=== PATIENT | female | born 1985 | race American Indian/Alaskan Native ===

== ENCOUNTER 2017-03-07 20:36 | Emergency (ER) | payer SELFPAY ==
[2017-03-07 21:43] LABS: Basophils % (Auto) 0.7 % (0.0-1.8); Eosinophils % (Auto) 0.6 % (0.0-4.3); Hematocrit 35.5 % (30.3-42.9); Hemoglobin 11.5 gm/dl (10.1-14.3); Mean Corpuscular HGB Conc 32 % (30-34); Mean Corpuscular Hemoglobin 27 pg (28-32); Mean Corpuscular Volume 84 fl (79-97); Platelet Count 187 K/mm3 (140-440); Red Blood Count 4.21 M/mm3 (3.65-5.03); Red Cell Distribution Width 17.5 % (13.2-15.2); White Blood Count 6.3 K/mm3 (4.5-11.0)
[2017-03-07 22:04] LABS: Bacteria,Urine 1+ /HPF (Negative); Bilirubin,Urine NEG (Negative); Blood,Urine LG (Negative); Ketones,Urine NEG (Negative); Leukocyte Esterase,Urine MOD (Negative); Mucus,Urine 3+ /HPF; Nitrite,Urine NEG (Negative)
[2017-03-08 00:53] LABS: Anion Gap 17 mmol/L; Blood Urea Nitrogen 6 mg/dL (7-17); Calcium 8.6 mg/dL (8.4-10.2); Carbon Dioxide 25 mmol/L (22-30); Chloride 99.5 mmol/L (98-107); Glucose 91 mg/dL (65-100); Potassium 3.5 mmol/L (3.6-5.0); Sodium 138 mmol/L (137-145)
--- NOTE | 2017-03-08 01:07 | Emergency Department Report ---
HPI - General Chief Complaint: Vaginal Bleeding Time Seen by Provider: 03/08/17 00:34 - HPI HPI: This is a 31-year-old Afro-[place] female presents the emergency department from home with complaint of pelvic discomfort that been going on for the past few days. The patient recently finished her menstrual cycle and it started off as menstrual cramps but then became more intense. The menstrual cycle ended Tuesday, and that is when she stopped bleeding as well, but the discomfort has continued. She is not taken anything for symptoms prior to presentation. She has a past medical history of anemia. No recent travel or sick contacts at home. She denies any vaginal discharge, dysuria, fever, nausea, vomiting or back pain. ED Past Medical Hx - Past Medical History Hx Asthma: Yes Additional medical history: anemia - Surgical History Hx Appendectomy: Yes - Social History Smoking Status: Current Some Day Smoker Substance Use Type: None - Medications Home Medications: Home Medications Medication Instructions Recorded Confirmed Last Taken Type HYDROcodone/APAP 5-325 [Alexander 1 each PO Q6HR PRN #8 tablet 03/08/17 Unknown Rx 5/325] ED Review of Systems ROS: Stated complaint: LOWER ABD PAIN/HEADACHE Other details as noted in HPI Comment: All other systems reviewed and negative Constitutional: denies: chills, fever Eyes: denies: eye pain, eye discharge, vision change ENT: denies: ear pain, throat pain Respiratory: denies: cough, shortness of breath, wheezing Cardiovascular: denies: chest pain, palpitations Gastrointestinal: denies: nausea, vomiting Genitourinary: denies: dysuria, discharge Musculoskeletal: denies: back pain, joint swelling, arthralgia Skin: denies: rash, lesions Neurological: denies: headache, weakness, paresthesias Physical Exam - Physical Exam Vital Signs: Vital Signs 03/07/17 21:16 Temperature 98 F Pulse Rate 71 Respiratory 16 Rate Blood Pressure 118/77 O2 Sat by Pulse 98 Oximetry Physical Exam: GENERAL: The patient is well-developed well-nourished. HEENT: Normocephalic. Atraumatic. Extraocular motions are intact. Patient has moist mucous membranes. Pupils equal reactive to light bilaterally. NECK: Supple. Trachea is midline. CHEST/LUNGS: Clear to auscultation. There is no respiratory distress noted. HEART/CARDIOVASCULAR: Regular. There is no tachycardia. There is no gallop rub or murmur. ABDOMEN: Abdomen is soft, nontender. Unable to reproduce patient's lower abdominal/pelvic discomfort to palpation. No guarding rebound tenderness. Patient has normal bowel sounds. There is no abdominal distention. SKIN: Skin is warm and dry. NEURO: The patient is awake, alert, and oriented. The patient is cooperative. The patient has no focal neurologic deficits. The patient has normal speech. MUSCULOSKELETAL: There is no tenderness or deformity. There is no limitation range of motion. There is no evidence of acute injury. ED Course Vital Signs 03/07/17 21:16 Temperature 98 F Pulse Rate 71 Respiratory 16 Rate Blood Pressure 118/77 O2 Sat by Pulse 98 Oximetry ED Medical Decision Making - Lab Data Result diagrams: 03/07/17 21:24 03/07/17 22:58 - Radiology Data Radiology results: report reviewed Transvaginal/pelvic ultrasound shows a septated cyst in the right ovary that is most likely benign. - Medical Decision Making 31-year-old female presents to the emergency department with some lower abdominal/pelvic pain that started off as normal menstrual cramps but became more intense and more sharp. Labs are mostly unremarkable. There is still some hematuria despite the fact that she stopped bleeding as part of her menstrual cycle a few days ago. However there is no significant leukocytosis and there is no urinary tract infection. Transvaginal/pelvic ultrasound shows a septated cyst in the right ovary that is most likely benign. It is possible that this is a source of her discomfort. Vital signs stable throughout her ED course. She otherwise appears safe for discharge home at this time. She'll be given a prescription for a small amount of pain medication and multiple referrals for [facility]. She will return to the ER with any worsening of her symptoms or any acute distress. - Differential Diagnosis , fibroid, ovarian cyst, ovarian torsion Critical Care Time: No Critical care attestation.: If time is entered above; I have spent that time in minutes in the direct care of this critically ill patient, excluding procedure time. ED Disposition Clinical Impression: Pelvic pain, Ovarian cyst Disposition: DC- TO HOME OR SELFCARE Is pt being admited?: No Condition: Stable Instructions: Ovarian Cyst (ED) Additional Instructions: Please follow-up with a [facility] and primary care physician in the next few days. Return to the emergency department with any worsening of her symptoms or any acute distress. You've been prescribed a medication that is sedating. Therefore this medication cannot be mixed with alcohol, or taken prior to driving, working, or being responsible for children. Prescriptions: HYDROcodone/APAP 5-325 [Alexander 5/325] 1 each PO Q6HR PRN #8 tablet PRN Reason: Pain Referrals: PRIMARY CARE, [Primary Care Provider] - 3-5 Days [facility] [Provider Group] - 3-5 Days [facility] [Provider Group] - 3-5 Days [facility] [Provider Group] - 3-5 Days Time of Disposition: 03:35
--- NOTE | 2017-03-08 02:41 | Ultrasound Report ---
FINAL REPORT EXAM: US PELVIS DUPLEX DOPPLER COMP HISTORY: pelvic pain bilaterally and dysfunctional uterine bleeding . LMP 02/16/2017. TECHNIQUE: Ultrasound of the pelvis using transabdominal and transvaginal imaging PRIORS: None. FINDINGS: Uterus: Uterus is normal in size and normal and homogeneous in echogenicity without focal fibroid formation. The uterus measures 7.0 x 3.4 x 4.5 cm in size. A small amount of fluid is seen in the cervical canal, nonspecific. Endometrial stripe: Normal and uniform in thickness measuring 3.9 mm. Ovaries: Both ovaries appear normal in size and echogenicity with normal blood flow bilaterally. The right ovary measures 3.4 x 2.1 x 3.3 cm and the left ovary measures 2.4 x 2.0 x 1.8 cm in size. There is an avascular septated cyst in the right ovary measuring 2.1 x 1.3 x 2.0 cm. A small physiologic cyst in the left ovary is noted. Other: There is no evidence for solid adnexal mass or free fluid in the cul-de-sac seen. IMPRESSION: Septated cyst in the right ovary, most likely benign.
[2017-03-08 02:42] VITALS: BP 105/61
[2017-03-08] MEDS ORDERED: NORCO 5/325 PO ONE (02:57)
== END 2017-03-08 03:54 | disposition home or self-care (01) ==
LOC: ED 20:36
DX: N83.201 Unspecified ovarian cyst, right side (principal); J45.909 Unspecified asthma, uncomplicated; F17.200 Nicotine dependence, unspecified, uncomplicated
CPT/HCPCS: 36415; 76830; 80048; 81001; 84702; 85025; 86850; 86900; 86901; 87086; 93975

== ENCOUNTER 2019-07-23 16:49 | Emergency (ER) | payer SELFPAY ==
--- NOTE | 2019-07-23 17:39 | Emergency Department Report ---
Chief Complaint: Medical Clearance Stated Complaint: POSS Time Seen by Provider: 07/23/19 17:30 - HPI History of Present Illness: This is a 34-year-old female nontoxic, well in appearance with no signs of distress presents to the ED for testing. Patient denies any pelvic pain or vaginal bleeding. Stated had a positive test at home. Patient stated she is asymptotic. Denies any vaginal discharge, vaginal pain, or swelling. Patient denies any urinary symptoms. Patient denies any fever, chills, headache, nausea, vomiting, chest pain or shortness of breathe. denies any other symptoms or complaints. - Exam Physical Exam: no pelvic pain. no abdominal pain. no vaginal bleeding. no symptoms. normal exam. MSE screening note: Focused history and physical exam performed. Due to findings the following was ordered: ED Medical Decision Making - Medical Decision Making This is a 34-year-old female that presents with nonmedical emergency complaint. Patient is just requested for a pregnancuy test. Patient denies any symptoms. I gave patient many different referrals to follow-up. Patient was instructed to Follow-up with a OBGYN doctor in 3-5 days or if symptoms worsen and continue return to emergency room as soon as possible. At time of discharge, the patient does not seem toxic or ill in appearance. No acute signs of distress noted. Patient agrees to discharge treatment plan of care. No further questions noted by the patient. ED Disposition for MSE Clinical Impression: Possible , not yet confirmed Disposition: Z-07 MED SCREENING EXAM-LEFT Is pt being admited?: No Does the pt Need Aspirin: No Condition: Stable Additional Instructions: Follow-up with a OBGYN doctor in 3-5 days or if symptoms worsen and continue return to emergency room as soon as possible. Referrals: PRIMARY [facility] [Referring] - 3-5 Days BOBBI SINHA MD [Staff Physician] - 3-5 Days [facility] [Provider Group] - 3-5 Days
[2019-07-23 18:01] VITALS: BP 121/79
== END 2019-07-23 17:39 | disposition left against medical advice (07) ==
LOC: ED 16:49
DX: Z32.00 Encounter for pregnancy test, result unknown (principal); Z91.041 Radiographic dye allergy status
CPT/HCPCS: 99281